=== PATIENT | male | born 1955 | race Caucasian/White ===

== ENCOUNTER → 2018-05-25 06:02 | Day surgery (SDC) | payer OTHER ==
--- NOTE | 2018-05-22 19:42 | HP ---
HISTORY AND PHYSICAL: DATE OF ADMISSION/SURGERY: 05/25/18 DATE OF OFFICE VISIT: 05/22/18 SURGEON: Shy Robledo MD * (DICTATED BY HANSA YEUNG) PROCEDURE: Right knee arthroscopy with partial meniscectomy, possible chondroplasty, possible synovectomy. CHIEF COMPLAINT: Right knee pain. HISTORY OF PRESENT ILLNESS: Mr. Cordova is a 62-year-old gentleman with continued complaints of right knee pain and MRI confirms a meniscus tear. He has now elected to proceed with surgery. PAST MEDICAL HISTORY: Colitis, high cholesterol, and asthma. PAST SURGICAL HISTORY: Varicocelectomy and left eye surgery. CURRENT MEDICATIONS: 1. Multivitamin. 2. Elocon topical. 3. CoQ10. 4. Balsalazide disodium 750 mg 3 tabs by mouth daily. ALLERGIES: SCOPOLAMINE. FAMILY HISTORY: Coronary artery disease, cancer, and RA. SOCIAL HISTORY: A 62-year-old, lives with his . Does not smoke or use drugs. Uses occasional alcohol. REVIEW OF SYSTEMS: A complete 14-point review of systems was reviewed with the patient. It was all negative or noncontributory. He denies history of DVT, PE , hepatitis, HIV, or anesthesia problems. PHYSICAL EXAMINATION GENERAL: He is well developed, well nourished, in no acute distress. VITAL SIGNS: He stands 5 feet 6 inches tall, weighs 169 pounds. His blood pressure is 114/60, heart rate is 67. HEENT: Normocephalic, atraumatic. NECK: Supple. No palpable lymph nodes. PULMONARY: The lungs are clear to auscultation bilaterally. CARDIO: Regular rate and rhythm. Strong S1, S2. ABDOMEN: Soft, nontender, and nondistended. NEUROLOGICAL: He is alert and oriented x3. MUSCULOSKELETAL: Right lower extremity: The skin is intact. There are no open wounds or abrasions. There is a mild joint effusion. He has some tenderness over the medial joint line. Range of motion is 0 to 130 degrees of flexion. Positive Apley's. 2+ dorsalis pedis pulse. His lower extremity muscle group strengths are intact at 5/5. ASSESSMENT AND PLAN: Mr. Cordova is a 62-year-old gentleman with continued right knee pain and MRI shows a medial meniscus tear. He has elected to proceed with a right knee arthroscopy with partial meniscectomy, possible chondroplasty, possible synovectomy. Surgery is scheduled for 05/25/[address] Robledo discussed the risks and benefits of the surgery at today's visit and all of his questions were answered. He will follow up with Dr. Robledo 2 weeks after the surgery. HANSA YEUNG [id number]/[facility] #: [id number] [facility] HOSPITALSandra
[~2018-05-25 06:02] MED LIST: Acetaminophen IV 1GM/100ML * 10 MG/ML VIAL IVPB PRN; Acetaminophen IV 1GM/100ML * 100 ML ONE; Buffered Lidocaine 1% SYRIN* 1 ML/SYRINGE INTRADERM ONE; Bupivacaine 0.5%* 50 ML VIAL ONE; Chloroprocaine 2%* 20 ML VIAL ONE; Dexamethasone IV* 4 MG/ML 1 ML (4 MG) IV SLOW PU ONE; Dexamethasone IV* 4 MG/ML 1 ML (4 MG) ONE; EPINEPHRINE 1 MG/ML 1 ML VIAL ONE; Famotidine IV* 10 MG/ML 2 ML (20 mg) IV ONE; Famotidine IV* 10 MG/ML 2 ML (20 mg) ONE; KETAMINE HCL* 50 MG/ML 10 ML VIAL ONE; Ketorolac INJ* 30 MG/ML 1 ML VIAL IV PRN; Lactated Ringers 1000 ML Bag* 1,000 ML IV SCH; Midazolam* 1 MG/ML 2 ML VIAL (2 MG) ONE; Naloxone* 0.4 MG/ML 1 ML VIAL IV PRN; Ondansetron INJ* 2 MG/ML VIAL IV PRN; Propofol* 10 MG/ML 20 ML BTL ONE; ceFAZolin 2 GM PREMIX in ORs 2 GM/50 ML BAG IVPB ONE; fentaNYL* 50 MCG/ML 2 ML VIAL (100 MCG VIAL) IV PRN; methylPREDNISolone ACETATE 80* 80 MG/ML 1 ML VIAL ONE
[2018-05-25 10:04] VITALS: BP 121/69
--- NOTE | 2018-05-25 20:49 | OP ---
DATE OF OPERATION: 05/25/18 - [facility] DATE OF : 51 SURGEON: Shy Robledo MD PURCHASING EXPEDITOR: HANSA Izquierdo. Ms. Gonzalez did help throughout the procedure with preparation of the leg, wound retraction, manipulation of the knee, and wound closure. ANESTHESIOLOGIST: Dr. Madison. ANESTHESIA: Spinal. PRE-OP DIAGNOSES: Right knee medial meniscal tear, moderate osteoarthritis. POST-OP DIAGNOSES: Right knee longitudinal tear of the medial meniscus, radial tear of the lateral meniscus, medial plica, anterior synovitis, moderate osteoarthritis. OPERATIVE PROCEDURE: Right knee arthroscopy with partial medial meniscectomy, partial lateral meniscectomy, and medial plica excision. BRIEF HISTORY/INDICATIONS: Mr. Cordova is a 62-year-old gentleman, who developed mechanical symptoms in the right knee and difficulty running. His radiographs showed some baseline arthritis. MRI was obtained and confirmed a meniscal tear medially. The patient tried conservative treatment, but continued to have pain and swelling. He elected to undergo right knee arthroscopy with partial meniscectomy, possible chondroplasty, possible synovectomy, possible plica excision. Informed consent was obtained from the patient. He understood the risks of surgery included, but were not limited to bleeding, infection, damage to nearby structures, continued pain, need for further surgery, retear of the meniscus, continued progression of pain from arthritis, stroke, heart attack, blood clot, and . He wished to proceed. INTRAOPERATIVE FINDINGS: Intraoperatively, the patient was noted to have a complex and linear tear of the posterior 50% of the medial meniscus in the white -red zone, he was also noted to have radial tear in the midportion and posterior horn of the lateral meniscus. He had significant anterior synovitis and a medial plica that impinged with range of motion along the patellofemoral joint. The patient was noted to have grade 2 and 3 Outerbridge cartilage changes in all three compartments of the knee. COMPLICATIONS: None. ESTIMATED BLOOD LOSS: Less than 25 cc. SPECIMENS: None. DESCRIPTION OF PROCEDURE: Mr. Cordova was identified in the preanesthesia unit. His right lower extremity was marked as the correct operative side. Informed consent was signed and placed in the chart. The patient was taken to the operating room and placed under anesthesia. His right lower extremity was prepped and draped in the usual sterile fashion. Preop time-out was made to correctly identify the patient, side, and site. Appropriate perioperative antibiotics were given within 1 hour of incision. A standard anterolateral portal incision was made with a #10 blade and carried down through the capsule. A trocar was introduced. As soon as the light and water sources were turned on, there was immediate visualization of the suprapatellar pouch. Suprapatellar pouch had no significant abnormality. The patellofemoral compartment had some grade 2 and 3 Outerbridge cartilage changes. Medial gutter showed a significant plica, which did impinge with range of motion along the patellofemoral compartment. There were no loose bodies in the medial plica. Medial compartment had some grade 2 and 3 Outerbridge cartilage changes along the medial femoral condyle. There was a significant postero-medial meniscal tear visible. ACL and PCL appeared to be intact. There was significant amount of the anterior synovitis. The knee was placed in a axiupd-vv-garl position. There was a visible radial tear of the midportion and lateral horn of the lateral meniscus. There were grade 2 and 3 Outerbridge cartilage changes in this compartment as well. Lateral gutter showed no loose body or plica. Under direct visualization, a medial portal incision was made with a #10 blade. Probe was introduced and a second tour of the knee joint was performed. There were no additional findings noted. Shaver and radiofrequency ablation wand were used to remove some anterior synovitis to improve visualization. Next, the shaver and radiofrequency ablation wand were used to perform a conservative excision of the medial plica until it no longer impinged with range of motion. Straight biter and shaver were used to perform partial medial meniscectomy in the white-red zone until a smooth border was obtained. Further probing of the posterior 50% of the medial meniscus showed no additional tears. Radiofrequency ablation wand was used to further smooth the edge of the meniscus. The knee was placed in a fvbshe-zd-uuww position. Shaver was used to excise the lateral meniscal radial tear until a smooth border of the meniscus was obtained in the white and white-red zone. The knee was copiously irrigated with sterile saline. All instruments were removed. Incisions were closed using 3-0 nylon suture. Intraarticular injection of 80 mg Depo-Medrol and 6 cc of 0.25% Marcaine was placed in the knee joint. Incisions were covered with Xeroform, 4x4s, and Webril. Guillermo wrap and cold pack were placed over this. The patient's anesthesia was reversed without difficulty. He was taken to the PACU in stable condition. Intended weightbearing will be weightbearing as tolerated. Intended DVT prophylaxis will be aspirin. He will follow up in 2 weeks' time for suture removal. [id number]/[facility] #: [id number] [facility]ALSandra
== END | disposition home or self-care (01) ==
LOC: OR 06:02
PROVIDERS: ATTEND Orthopaedic Surgery Adult Reconstructive Orthopaedic Surgery
DX: S83.241A Other tear of medial meniscus, current injury, right knee, initial encounter (principal); S83.281A Other tear of lateral meniscus, current injury, right knee, initial encounter; M25.561 Pain in right knee; M25.461 Effusion, right knee; M17.0 Bilateral primary osteoarthritis of knee; E78.00 Pure hypercholesterolemia, unspecified; J45.909 Unspecified asthma, uncomplicated; Z88.8 Allergy status to other drugs, medicaments and biological substances
CPT/HCPCS: J0690; J1040; J1100; J2250; J2400; J2704

== ENCOUNTER 2019-04-23 10:47 | Emergency (ER) | payer MEDICARE ==
--- OUTSIDE RECORDS SUMMARY | 2019-04-23 10:56 | XMS REPORT | Continuity of Care Document ---
:1955 External Reference #:[id number] Author Name Jayson Fermin MD (transmitted by agent of provider Rosalina Palmer) Address [address] [place] [address] Care Team Providers Name Role Phone Jayson Fermin MD - Gastroenterology Care Team Information Coping Machine Operator [phone] Toro Roger III, MD - Internal Care Team Information Coping Machine Operator [phone] Medicine Kobe Robertson MD - Otolaryngology Care Team Information Coping Machine Operator Problems Active Problems Provider Date Crohn's disease Ernie Sierra M.D.,FACP Onset: 03/13/2007 Note: vs UC - ( indeterminant per [facility]) - UC per first program therapist in [place] - bloody diarrhea Hyperlipidemia Ernie Sierra M.D.,FACP Onset: 03/13/2007 Note: in late was on Lipitor and had muscle soreness Insomnia Ernie Sierra M.D.,FACP Onset: 03/13/2007 Chronic rhinitis Toro Roger M.D. Onset: 04/24/2012 Note: allergy shots every 2 weeks in 2018 (brief trial of monthly winter shots in 2015 - 2016); Microscopic hematuria Ernie Sierra M.D.,FACP Onset: 11/18/2014 Note: had cystoscopy in distant past Localized, primary osteoarthritis Shy Robledo M.D. Onset: 01/25/2018 Current tear of medial cartilage AND/OR Shy Robledo M.D. Onset: 01/25/2018 meniscus of knee Iron deficiency anemia Jayson Fermin MD Onset: 05/23/2012 Note: Hg 12.5 MCV 78 at Dx 05/23/12 then 12/26/14 Hg 16.0 Hct 48 MCV 91 Social History Type Date Description Comments Sex Unknown Tobacco Use Start: Unknown Never Smoked Cigarettes ETOH Use consumes 3-4 glasses per week Recreational Drug Use Denies Drug Use Tobacco Use Start: Unknown Patient has never smoked Smoking Status Reviewed: 04/06/19 Patient has never smoked Exercise Type/Frequency Exercises regularly runs every other day. Still working out on the elliptical Allergies, Adverse Reactions, Alerts Active Allergies Reaction Severity Comments Date Scopolamine hallucinations 03/13/2007 Demerol Nausea N/V sx 05/09/2018 Morphine and Related vomiting 08/18/2018 Medications Active Medications SIG Qnty Indications Ordering Date Provider Cortenema 1 60 mL bottle 840units Jayson Farley 03/19/2019 nightly for 14 MD Zander 100mg/60ML Enema days - dispense 14 individual bottles Prednisone take 5 a day and 60tabs Jayson Farley 02/26/2019 10mg taper as directed MD Zander Tablets Multi-Vitamins/Iron 1 po qd 100tabs Ernie Aj 05/30/2012 Lewis Sierra,FACP Tablets Co Q10 1 po qd - not 90caps Unknown 100mg everyday Capsules Balsalazide 3 tabs by mouth 270caps Jayson Farley Disodium twice daily MD Zander 750mg Capsules History Medications Cortenema one each night 420ml Jayson Farley 03/19/2019 - 100mg/60ML MD Zander 03/19/2019 Enema Hydrocortisone Acetate insert 1 12units Jayson Farley 03/07/2019 - suppository into MD Zander 03/19/2019 25mg Suppository rectum once per night as directed. Medications Administered in Office Medication SIG Qnty Indications Ordering Provider Date Synvisc Or Synvisc-One Injection 1 Shy Robledo M.D. 03/29/2018 MG Injection Synvisc Or Synvisc-One Injection 1 Shy Robledo M.D. 03/24/2018 MG Injection Synvisc Or Synvisc-One Injection 1 Shy Robledo M.D. 03/17/2018 MG Injection Depomedrol 40MG Shy Rboledo M.D. 11/18/2017 Injection Immunizations CPT Code Status Date Vaccine Reaction Lot # [id number] Given 01/29/2019 Influenza Virus Vaccine, No immediate reaction [id number] Quadrivalent ([id number]), Derived From Cell 07428 Given 06/21/2018 Tdap - [id number] Tetanus/Diptheria/Acellular Pertussis 76938 Given 04/27/2018 Influenza Virus Vaccine, [id number] Quadrivalent, Split, Preservative Free 09378 Given 02/06/2016 Influ Virus Vaccine, [id number] Quadrivalent, Split Virus, [place] [address] Given 11/18/2014 Pneumococcal Conjugate no reaction, no [id number] Vaccine 13 Valent For complaints Intramuscular Use 80492 Given 11/16/2013 Zoster (Zostavax) [id number] Given 04/24/2012 Fluvirin Im 3Yrs And Older [id number] Vital Signs Date Vital Result Comment 04/06/2019 10:19am Height 66 inches 5'6" Weight 157.00 lb Heart Rate 91 /min BP Systolic Sitting 124 mmHg BP Diastolic Sitting 78 mmHg Body Temperature 97.8 F O2 % BldC Oximetry 100 % BMI (Body Mass Index) 25.3 kg/m2 03/19/2019 1:56pm Height 66 inches 5'6" Weight 157.00 lb Heart Rate 83 /min BP Systolic Sitting 112 mmHg BP Diastolic Sitting 62 mmHg Respiratory Rate 18 /min O2 % BldC Oximetry 98 % BMI (Body Mass Index) 25.3 kg/m2 Results Test Acquired Date Facility Test Result H/L Range Note CBC No Diff 02/26/2019 [facility] White Blood 15.1 10^3/uL High 3.5-10.[address] [place] [address] [phone] Red Blood Count 5.03 10^6/uL Normal 4.18-5.48 Hemoglobin 15.1 g/dL Normal 14.0-18.0 Hematocrit 45 % Normal 42-52 Mean Corpuscular Volume 89 fL Normal 80-94 Mean Corpuscular Hemoglobin 30 pg Normal 27-31 Mean Corpuscular HGB Conc 34 g/dL Normal 31-36 Red Cell Distribution Width 13 % Normal 10-15 Platelet Count 306 10^3/uL Normal 150-450 Mean Platelet Volume 7.4 fL Normal 7.4-10.4 Comp Metabolic 02/26/2019 [facility] Sodium 139 mmol/L Normal 135-145 [address] [place] [address] [phone] Potassium 4.2 mmol/L Normal 3.5-5.0 Chloride 101 mmol/L Normal 101-111 Co2 Carbon Dioxide 31 mmol/L Normal 22-32 Anion Gap 7 mmol/L Normal 2-11 Glucose 85 mg/dL Normal 70-100 Blood Urea Nitrogen 15 mg/dL Normal 6-24 Creatinine 0.89 mg/dL Normal 0.67-1.17 BUN/Creatinine Ratio 16.9 Normal 8-20 Calcium 9.7 mg/dL Normal 8.6-10.3 Total Protein 6.8 g/dL Normal 6.4-8.9 Albumin 4.2 g/dL Normal 3.2-5.2 Globulin 2.6 g/dL Normal 2-4 Albumin/Globulin Ratio 1.6 Normal 1-3 Total Bilirubin 1.00 mg/dL Normal 0.2-1.0 Alkaline Phosphatase 80 U/L Normal 34-104 Alt 14 U/L Normal 7-52 Ast 20 U/L Normal 13-39 Egfr Non- 85.8 >60 Egfr 103.8 >60 1 Laboratory test 02/26/2019 [facility] C Reactive 2.72 mg/L Normal <8.[address] [place] [address] [phone] Thiopurine Metabolites <pending> Thiopurine 02/26/2019 [facility] Interpretation See Comment 2 Methyltransferase [address] [place] [address] [phone] 6-Methylmercaptopurine 2.86 nmol/mL/h Abnormal 3.00-6.66 6Methylmercaptopurine Riboside 4.95 nmol/mL/h Abnormal 5.04-9.57 6-Methylthioguanine riboside 4.18 nmol/mL/h 2.70-5.84 Reviewed By See Comment 3 Laboratory test 10/18/2018 [facility] Surgical SEE RESULT 4 , [address] [place] [address] [phone] 1 Because ethnic data is not always readily available, this report includes an eGFR for both -Americans and non- Americans. The National Kidney Disease Education Program (NKDEP) does not endorse the use of the MDRD equation for patients that are not between the ages of 18 and 70, are , have extremes of body size, muscle mass, or nutritional status, or are non- or non-. According to the National Kidney Foundation, irrespective of diagnosis, the stage of the disease is based on the level of kidney function: Stage Description GFR(mL/min/1.73 m(2)) 1 Kidney damage with normal or decreased GFR 90 2 Kidney damage with mild decrease in GFR 60-89 3 Moderate decrease in GFR 30-59 4 Severe decrease in GFR 15-29 5 Kidney failure <15 (or dialysis) 2 *Heterozygote* In this whole blood sample, the profile of activity of thiopurine methyltransferase (TPMT) using three different substrates showed low activity with at least one substrate. This profile is indicative of carrier status for TPMT deficiency with an underlying risk for toxicity to thiopurine drugs (for example, 6-mercaptopurine, 6-thioguanine, and azathioprine). Patients with reduced TPMT activity may still be treated with thiopurine drugs with fewer adverse effects by reducing the initial dose. ADDITIONAL INFORMATION Liquid Chromatography-Tandem Mass Spectrometry (LC-MS/MS) This test was developed and its performance characteristics determined by [facility] in a manner consistent with CLIA requirements. This test has not been cleared or approved by the U.S. Food and Drug Administration. 3 RESULT: Malcolm Mckeon M.D. Test Performed by: [address] [address] Axle Polisher: Denzel Krishna M.D. Ph.D.; CLIA# [id number] 4 [id number] SEE RESULT BELOW Name: LION MANLEY : [address]: Jayson Fermin MD Acct: [id number] Unit: [id number] AGE: 63 Location: ENDOC Re10/18/18 SEX: M Status: DEP REF SPEC: [id number] TIFFANIE: 10/18/18- SUBM DR: Jayson Fermin MD REQ: [id number] RECD: 10/18/180 STATUS: PHILIP ACOSTA DR: Toro Roger III, MD _ ORDERED: LEVEL 4/7 COMMENTS: [id number] FINAL DIAGNOSIS 1. Colon, right, biopsies: -- Large intestinal mucosa with mild architectural disorder compatible with repair. -- No active colitis or dysplasia identified. 2. Colon, transverse, biopsy: -- Large intestinal mucosa with no significant pathologic abnormality. -- No active colitis or dysplasia identified. 3. Colon, transverse, biopsy: -- Partially denuded large intestinal mucosa with no significant pathologic abnormality. -- No active colitis or dysplasia identified. 4. Colon, descending, biopsy: -- Large intestinal mucosa with no significant pathologic abnormality. -- No active colitis or dysplasia identified. 5. Colon, sigmoid, biopsy: -- Large intestinal mucosa with no significant pathologic abnormality. -- No active colitis or dysplasia identified. 6. Colon, rectal erythema, biopsy: -- Large intestinal mucosa with mild architectural disorder compatible with repair and mild lamina propria nonspecific hyperemia. -- No active colitis or dysplasia identified. 7. Colon, rectum, biopsy: -- Superficial squamous mucosa with no significant pathologic abnormality. CONTINUED ON NEXT PAGE DEPARTMENT OF PATHOLOGY, [address] [place] [address] Cole Donnelly M.D. Director [facility] # [id number] RUN DATE: 10/19/18 [facility] LAB LIVE PAGE 2 Patient: LION MANLEY [id number] (Continued) CLINICAL HISTORY (Continued) CLINICAL HISTORY Ulcerative colitits 2-3 days no blood; screening/surveillance for malignancy in asymptomatic patient POST-OPERATIVE DIAGNOSIS Colonoscopy to cecum with ease: random biopsy (6) sites; approximately 5 to 10% of mucosa inflamed, 5 to 30 cm approximately five smooth 2-6 cm pseudopolyps, atrophic mucosa in rectum, polyp mid transverse, cold snare, biopsies x2 and tattoo; conclusion/ plan: colon polyps, ulcerative colitis random biopsy GROSS DESCRIPTION 1. The specimen is received in formalin labeled, Biopsy Right Colon, and consists of two pierce irregular soft tissue fragments measuring 0.3 x 0.2 x 0.1 cm and 0.3 x 0.3 x 0.1 cm which are submitted entirely in one cassette. 2. The specimen is received in formalin labeled, Biopsy Transverse Colon, and consists of two pierce irregular soft tissue fragments measuring 0.3 x 0.2 x 0.1 cm and 0.8 by up to 0.2 x 0.1 cm which are submitted entirely in one cassette. 3. The specimen is received in formalin labeled, Transverse Colon Polyp, and consists of two pierce-white to pink irregular soft tissue fragments measuring 0.5 by up to 0.2 x 0.1 cm and 0.7 by up to 0.3 x 0.1 cm which are submitted entirely in one cassette. 4. The specimen is received in formalin labeled, Biopsy Descending Colon, and consists of a 0.4 x 0.3 x 0.1 cm aggregate of pierce irregular soft tissue fragments which is submitted entirely in one cassette. 5. The specimen is received in formalin labeled, Biopsy Sigmoid Colon, and consists of two pierce-white irregular soft tissue fragments averaging 0.4 x 0.2 x 0.1 cm which are submitted entirely in one cassette. 6. The specimen is received in formalin labeled, Biopsy Rectal Erythema, and consists of two pierce-pink irregular soft tissue fragments measuring 0.3 x 0.2 x 0.2 cm and 0.4 x 0.3 x 0.1 cm which are submitted entirely in one cassette. 7. The specimen is received in formalin labeled, Biopsy Rectum-Atrophic Mucosa, and CONTINUED ON NEXT PAGE DEPARTMENT OF PATHOLOGY, [address] [place] [address] Cole Donnelly M.D. Director [facility] # [id number] RUN DATE: 10/19/18 [facility] LAB LIVE PAGE 3 Patient: LION MANLEY [id number] (Continued) GROSS DESCRIPTION (Continued) consists of two translucent pierce-white irregular soft tissue fragments averaging 0.3 by up to 0.3 x 0.1 cm which are submitted entirely in one cassette. Signed by and Reported on: Cole Donnelly MD 02/27 1024 END OF REPORT DEPARTMENT OF PATHOLOGY, [address] [place] [address] Cole Donnelly M.D. Director [facility] # [id number] Procedures Date Code Description Status 10/18/2018 65373 Colonoscopy Flexible Remove Tumor/Polyp/Lesion Snare Completed Technique 10/18/2018 87837 Colonoscopy,W/Directed Submucosal Injections, Any Completed Substance 10/18/2018 [id number] Colonoscopy Completed 02/16/2017 [id number] Colonoscopy Completed 12/10/2015 [id number] Colonoscopy Completed 05/20/2014 [id number] Colonoscopy Completed 04/25/2013 [id number] Colonoscopy Completed 03/05/2008 [id number] Colonoscopy Completed Medical Devices Description No Information Available Encounters Type Date Location Provider Dx Diagnosis Office Visit 03/19/2019 [facility] Gastroenterology Jayson Farley K51.90 Ulcerative colitis, 1:45p MD Zander unspecified, without complications Z79.899 Other alf (current) drug therapy Office 02/26/2019 [facility] Gastroenterology Jayson Farley K51.90 Ulcerative Visit 12:30p MD Zander colitis, unspecified, without complications Z79.899 Other alf (current) drug therapy Office Visit 01/29/2019 1:40p [facility] Internal Harmanmarcella Rubio, Z01.818 Encounter for other Medicine - [facility] HELPER preprocedural Ccmob examination H26.9 Unspecified cataract K50.90 Crohn's disease, unspecified, without complications Z23 Encounter for immunization Assessments Date Code Description Provider 04/06/2019 K51.90 Ulcerative colitis, unspecified, without Jayson Fermin MD complications 04/06/2019 Z79.899 Other alf (current) drug therapy Jayson Fermin MD 03/19/2019 K51.90 Ulcerative colitis, unspecified, without Jayson Fermin MD complications 03/19/2019 Z79.899 Other alf (current) drug therapy Jayson Fermin MD 02/26/2019 K51.90 Ulcerative colitis, unspecified, without Jayson Fermin MD complications 02/26/2019 Z79.899 Other alf (current) drug therapy Jayson Fermin MD 01/29/2019 Z01.818 Encounter for other preprocedural examination Harman Rubio NP 01/29/2019 H26.9 Unspecified cataract Harman Rubio NP 01/29/2019 K50.90 Crohn's disease, unspecified, without Harman Rubio NP complications 01/29/2019 Z23 Encounter for immunization Harman Rubio NP 10/18/2018 K63.5 Polyp of colon Jayson Fermin MD 10/18/2018 K51.90 Ulcerative colitis, unspecified, without Jayson Fermin MD complications 10/18/2018 Z86.010 Personal history of colonic polyps Jayson Fermin MD Plan of Treatment Future Appointment(s):05/17/2019 10:15 am - Jayson Fermin MD at [facility] Jpexgzhiidxagtfc81/27/2019 - Jayson Fermin MDK51.90 Ulcerative colitis, unspecified, without complicationsFollow up:Prednisone 50 to 04/08 40 to 04/15 30 to 04/22 20to 04/29 10 to 05/06 then 5 until f/u appt Cortenemas go to every other as of 04/15/19 f/u before May 16Z79.899 Other terminal operator (current) drug therapyFollow up:Prednisone 50 to 04/08 40 to 04/15 30 to 04/22 20to 04/29 09 to 05/06 then 5 until f/u appt Cortenemas go to every other as of 04/15/19 f/u before May 16 Functional Status Description No Information Available Mental Status Description No Information Available Referrals Description No Information Available
--- OUTSIDE RECORDS SUMMARY | 2019-04-23 10:56 | XMS REPORT | Continuity of Care Document ---
:1955 External Reference #:[id number] Author Name Jayson Fermin MD (transmitted by agent of provider Stephanie Morgan) Address [address] [place] [address] Care Team Providers Name Role Phone Jayson Fermin MD - Gastroenterology Care Team Information Forest Logistics Manager Toro Roger III, MD - Internal Care Team Information Forest Logistics Manager Medicine Kobe Robertson MD - Otolaryngology Care Team Information Forest Logistics Manager Problems Active Problems Provider Date Crohn's disease Ernie Sierra M.D.,FACP Onset: 03/13/2007 Note: vs UC - ( indeterminant per [facility]) - UC per first shop laborer in [place] - bloody diarrhea Hyperlipidemia Ernie Sierra M.D.,FACP [...] Patient has never smoked Smoking Status Reviewed: 03/19/19 Patient has never smoked Exercise Type/Frequency Exercises [...] M.D. 03/17/2018 MG Injection Depomedrol 40MG Shy Robledo M.D. 11/18/2017 Injection Immunizations CPT Code Status Date Vaccine Reaction Lot # 14836 Given 01/29/2019 Influenza Virus Vaccine, No immediate reaction [id number] Quadrivalent (Cciiv4), Derived From Cell 38811 Given 06/21/2018 Tdap - [id number] Tetanus/Diptheria/Acellular Pertussis 69006 Given 04/27/2018 Influenza Virus Vaccine, 74BL5 Quadrivalent, Split, Preservative Free 16846 Given 02/06/2016 Influ Virus Vaccine, [id number] Quadrivalent, Split Virus, [place] [address] Given 11/18/2014 Pneumococcal Conjugate no reaction, no [id number] Vaccine 13 Valent For complaints Intramuscular Use 85858 Given 11/16/2013 Zoster (Zostavax) Q2037 Given 04/24/2012 Fluvirin Im 3Yrs And Older [id number] Vital Signs Date Vital Result Comment 03/19/2019 1:56pm Height 66 inches 5'6" Weight 157.00 lb Heart Rate 83 /min BP Systolic Sitting 112 mmHg BP Diastolic Sitting 62 mmHg Respiratory Rate 18 /min O2 % BldC Oximetry 98 % BMI (Body Mass Index) 25.3 kg/m2 02/26/2019 12:54pm Height 66 inches 5'6" Weight 161.00 lb Heart Rate 71 /min BP Systolic 99 mmHg BP Diastolic 55 mmHg O2 % BldC Oximetry 97 % BMI (Body Mass Index) 26.0 kg/m2 Results Test Acquired Date Facility Test Result H/L Range Note CBC No Diff 02/26/2019 [facility] White Blood 15.1 10^3/uL High 3.5-10.[address] [place] [address] [phone] Red Blood Count 5.03 10^6/uL Normal 4.18-5.48 Hemoglobin 15.1 g/dL Normal 14.0-18.0 Hematocrit 45 % Normal 42-52 Mean Corpuscular Volume 89 fL Normal 80-94 Mean Corpuscular Hemoglobin 30 pg Normal 27-31 Mean Corpuscular HGB Conc 34 g/dL Normal 31-36 Red Cell Distribution Width 13 % Normal 10-15 Platelet Count 306 10^3/uL Normal 150-450 Mean Platelet Volume 7.4 fL Normal 7.4-10.4 Comp Metabolic 02/26/2019 [facility] Sodium 139 mmol/L Normal 135-145 Panel [address] [place] [address] [phone] Potassium 4.2 mmol/L Normal 3.5-5.0 Chloride 101 [...] Egfr 103.8 >60 1 Laboratory test 02/26/2019 [facility] C Reactive 2.72 mg/L Normal <8.[address] [facility] [place] [address] [phone] Thiopurine Metabolites <pending> Thiopurine 02/26/2019 [facility] Interpretation See Comment 2 Methyltransferase [address] [place] [address] [phone] 6-Methylmercaptopurine 2.86 nmol/mL/h Abnormal 3.00-6.66 6Methylmercaptopurine Riboside 4.95 nmol/mL/h Abnormal 5.04-9.57 6-Methylthioguanine riboside 4.18 nmol/mL/h 2.70-5.84 Reviewed By See Comment 3 Laboratory test 10/18/2018 [facility] Surgical SEE RESULT 4 , [address] [facility] [place] [place] [address] [phone] 1 Because ethnic data is not always [...] its performance characteristics determined by [facility] in a manner consistent with CLIA requirements. This test has not been cleared or approved by the U.S. Food and Drug Administration. 3 RESULT: Malcolm Mckeon M.D. Test Performed by: [address] [address] Health Practice Manager: Denzel Krishna M.D. Ph.D.; CLIA# [id number] 4 [id number] 5 SEE RESULT BELOW Name: LION MANLEY Lilliam : [address]: Jayson Fermin MD Acct: [id number] Unit: [id number] AGE: 63 Location: ENDOC Re10/18/18 SEX: M Status: DEP REF SPEC: [id number] TIFFANIE: 10/18/18- SUBM DR: Jayson Fermin MD REQ: [id number] RECD: 10/18/18-1210 STATUS: PHILIP ACOSTA DR: Toro Roger III, MD _ ORDERED: LEVEL 4/7 COMMENTS: [id number] FINAL DIAGNOSIS 1. Colon, right, biopsies: -- [...] CONTINUED ON NEXT PAGE DEPARTMENT OF PATHOLOGY, [address] [place] [address] Cole Donnelly M.D. Director [facility] # [id number] RUN DATE: 10/19/18 [facility] LAB LIVE PAGE 2 Patient: LION MANLEY [id number] (Continued) CLINICAL HISTORY (Continued) CLINICAL HISTORY Ulcerative [...] Biopsy Transverse Colon, and consists of two pirece irregular soft tissue fragments measuring 0.3 x [...] CONTINUED ON NEXT PAGE DEPARTMENT OF PATHOLOGY, [address] [place] [address] Cole Donnelly M.D. Director [facility] # [id number] RUN DATE: 10/19/18 [facility] LAB LIVE PAGE 3 Patient: LION MANLEY [id number] (Continued) GROSS DESCRIPTION (Continued) consists of two translucent pierce-white irregular soft tissue fragments averaging 0.3 by up to 0.3 x 0.1 cm which are submitted entirely in one cassette. Signed by and Reported on: Cole Donnelly MD 02/27 1024 END OF REPORT DEPARTMENT OF PATHOLOGY, [address] [place] [address] Cole Donnelly M.D. Director [facility] # [id number] Procedures Date Code Description Status 10/18/2018 20284 Colonoscopy Flexible Remove Tumor/Polyp/Lesion Snare Completed Technique 10/18/2018 32382 Colonoscopy,W/Directed Submucosal Injections, Any Completed Substance 10/18/2018 01572905 Colonoscopy Completed 02/16/2017 90046475 Colonoscopy Completed 12/10/2015 16501656 Colonoscopy Completed 05/20/2014 33098361 Colonoscopy Completed 04/25/2013 25704818 Colonoscopy Completed 03/05/2008 06305046 Colonoscopy Completed Medical Devices Description No Information Available Encounters Type Date Location Provider Dx Diagnosis Office Visit 02/26/2019 [facility] Gastroenterology Jayson Farley K51.90 Ulcerative colitis, 12:30p MD Zander unspecified, without complications Z79.899 Other fpc (current) drug therapy Office Visit 01/29/2019 1:40p [facility] Internal Harmanmarcella Rubio, Z01.818 Encounter for other Medicine - TRANSPORTATION SUPERVISOR preprocedural Ccmob examination H26.9 Unspecified cataract K50.90 Crohn's disease, unspecified, without complications Z23 Encounter for immunization Assessments Date Code Description Provider 03/19/2019 K51.90 Ulcerative colitis, unspecified, without Jayson Fermin MD complications 03/19/2019 Z79.899 Other fpc (current) drug therapy Jayson Fermin MD 02/26/2019 K51.90 Ulcerative colitis, unspecified, without Jayson Fermin MD complications 02/26/2019 Z79.899 Other fpc (current) drug therapy Jayson Fermin MD 01/29/2019 Z01.818 Encounter for other preprocedural examination Harman Rubio NP 01/29/2019 H26.9 Unspecified cataract Harman Rubio, ERIN 01/29/2019 K50.90 Crohn's disease, unspecified, without Harman Rubio NP complications 01/29/2019 Z23 Encounter for immunization Harman Rubio NP 10/18/2018 K63.5 Polyp of colon Jayson Fermin MD 10/18/2018 K51.90 Ulcerative colitis, unspecified, without Jayson Fermin MD complications 10/18/2018 Z86.010 Personal history of colonic polyps Jayson Fermin MD Plan of Treatment Future Appointment(s):04/06/2019 10:15 am - Jayson Fermin MD at [facility] Ltrtihilkdnymkym41/16/2020 11:00 am - Jayson Fermin MD at [facility] Qjiedxgybqyikjas68/09/2019 - Jayson Fermin MDK51.90 Ulcerative colitis, unspecified, without complicationsFollow up:Apr 05Z79.899 Other fpc (current) drug therapyFollow up:Apr 05 Functional Status Description No Information Available Mental Status Description No Information Available Referrals Description No Information Available
--- OUTSIDE RECORDS SUMMARY | 2019-04-23 10:57 | XMS REPORT | Continuity of Care Document ---
:1955 External Reference #:[id number] Author Name Jayson Fermin MD (transmitted by agent of provider Stephanie Morgan) Address [address] [place] [address] Care Team Providers Name Role Phone Jayson Fermin MD - Gastroenterology Care Team Information Director Of [employer] [phone] Toro Roger III, MD - Internal Care Team Information Director Of [employer] Medicine Kobe Robertson MD - Otolaryngology Care Team Information Director Of [employer] Problems Active Problems Provider Date Crohn's disease Ernie Sierra M.D.,FACP Onset: 03/13/2007 Note: vs UC - ( indeterminant per [facility]) - UC per first duco polisher in [place] - bloody diarrhea Hyperlipidemia Ernie Sierra M.D.,FACP [...] Code Status Date Vaccine Reaction Lot # 71449 Given 01/29/2019 Influenza Virus Vaccine, No immediate reaction [id number] Quadrivalent (Cciiv4), Derived From Cell 01481 Given 06/21/2018 Tdap - [id number] Tetanus/Diptheria/Acellular Pertussis 36053 Given 04/27/2018 Influenza Virus Vaccine, 74BL5 Quadrivalent, Split, Preservative Free 99941 Given 02/06/2016 Influ Virus Vaccine, [id number] Quadrivalent, Split Virus, [place] [address] Given 11/18/2014 Pneumococcal Conjugate no reaction, no [id number] Vaccine 13 Valent For complaints Intramuscular Use 32167 Given 11/16/2013 Zoster (Zostavax) Q2037 Given 04/24/2012 Fluvirin Im 3Yrs And Older [id number] Vital Signs Date Vital Result Comment 03/19/2019 [...] H/L Range Note CBC No Diff 02/26/2019 [facility] White Blood 15.1 10^3/uL High 3.5-10.[address] [place] [address] [phone] Red Blood Count 5.03 10^6/uL Normal 4.18-5.48 Hemoglobin 15.1 g/dL Normal 14.0-18.0 Hematocrit 45 % Normal 42-52 Mean Corpuscular Volume 89 fL Normal 80-94 Mean Corpuscular Hemoglobin 30 pg Normal 27-31 Mean Corpuscular HGB Conc 34 g/dL Normal 31-36 Red Cell Distribution Width 13 % Normal 10-15 Platelet Count 306 10^3/uL Normal 150-450 Mean Platelet Volume 7.4 fL Normal 7.4-10.4 Comp Metabolic 02/26/2019 [facility] Sodium 139 mmol/L Normal 135-145 Panel [address] [place] [address] [phone] Potassium 4.2 mmol/L Normal 3.5-5.0 Chloride 101 [...] Egfr 103.8 >60 1 Laboratory test 02/26/2019 [facility] C Reactive 2.72 mg/L Normal <8.01 finding 101 [facility] [place] [address] [phone] Thiopurine Metabolites <pending> Thiopurine 02/26/2019 [facility] Interpretation See Comment 2 Methyltransferase [address] [place] [address] [phone] 6-Methylmercaptopurine 2.86 nmol/mL/h Abnormal 3.00-6.66 6Methylmercaptopurine Riboside 4.95 nmol/mL/h Abnormal 5.04-9.57 6-Methylthioguanine riboside 4.18 nmol/mL/h 2.70-5.84 Reviewed By See Comment 3 Laboratory test 10/18/2018 [facility] Surgical SEE RESULT 4 , 5 finding [address] [facility] [place] [address] [phone] 1 Because ethnic data is not always [...] its performance characteristics determined by [facility] in a manner consistent with CLIA requirements. This test has not been cleared or approved by the U.S. Food and Drug Administration. 3 RESULT: Malcolm Mckeon M.D. Test Performed by: [address] [address] Piano Maker: Denzel Krishna M.D. Ph.D.; CLIA# [id number] 4 [id number] 5 SEE RESULT BELOW Name: LION MANLEY Lilliam : [address]: Jayson Fermin MD Acct: [id number] Unit: [id number] AGE: 63 Location: ENDOC Re10/18/18 SEX: M Status: DEP REF SPEC: [id number] TIFFANIE: 10/18/18- SUBM DR: Jayson Fermin MD REQ: [id number] RECD: 10/18/18-1210 STATUS: PHILIP ACOSTA DR: Toro Roger III, MD _ ORDERED: LEVEL 4/7 COMMENTS: [id number] FINAL DIAGNOSIS 1. Colon, right, biopsies: -- [...] CONTINUED ON NEXT PAGE DEPARTMENT OF PATHOLOGY, [address] [place] [address] Cole Donnelly M.D. Director [facility] # [id number] RUN DATE: 10/19/18 [facility] LAB LIVE PAGE 2 Patient: LION MANLEY [id number] (Continued) CLINICAL HISTORY (Continued) CLINICAL HISTORY Ulcerative [...] CONTINUED ON NEXT PAGE DEPARTMENT OF PATHOLOGY, [address] [place] [address] Cole Donnelly M.D. Director [facility] # [id number] RUN DATE: 10/19/18 [facility] LAB LIVE PAGE 3 Patient: LION MANLEY [id number] (Continued) GROSS DESCRIPTION (Continued) consists of two translucent pierce-white irregular soft tissue fragments averaging 0.3 by up to 0.3 x 0.1 cm which are submitted entirely in one cassette. Signed by and Reported on: Cole Donnelly MD 02/27 1024 END OF REPORT DEPARTMENT OF PATHOLOGY, [address] [place] [address] Cole Donnelly M.D. Director [facility] # [id number] Procedures Date Code Description Status 10/18/2018 63418 Colonoscopy Flexible Remove Tumor/Polyp/Lesion Snare Completed Technique 10/18/2018 21504 Colonoscopy,W/Directed Submucosal Injections, Any Completed Substance 10/18/2018 46136686 Colonoscopy Completed 02/16/2017 18245125 Colonoscopy Completed 12/10/2015 09132074 Colonoscopy Completed 05/20/2014 96133472 Colonoscopy Completed 04/25/2013 95870603 Colonoscopy Completed 03/05/2008 00877914 Colonoscopy Completed Medical Devices Description No Information Available Encounters Type Date Location Provider Dx Diagnosis Office Visit 02/26/2019 [facility] Gastroenterology Jayson Farley K51.90 Ulcerative colitis, 12:30p MD Zander unspecified, without complications Z79.899 Other fpc (current) drug therapy Office Visit 01/29/2019 1:40p [facility] Internal Harmanmarcella Rubio, Z01.818 Encounter for other Medicine - CHEMIST ORGANIC preprocedural Ccmob examination H26.9 Unspecified cataract K50.90 [...] 10:15 am - Jayson Fermin MD at [facility] Hquuouwjvndfveet71/16/2020 11:00 am - Jayson Fermin MD at [facility] Dgnliyfaxymaycei53/09/2019 - Jayson Fermin MDK51.90 Ulcerative colitis, unspecified, without complicationsFollow up:Apr 05Z79.899 Other fpc (current) drug therapyFollow up:Apr 05 Functional Status Description No Information Available Mental Status Description No Information Available Referrals Description No Information Available
--- OUTSIDE RECORDS SUMMARY | 2019-04-23 10:57 | XMS REPORT | Continuity of Care Document ---
:1955 External Reference #:[id number] Author Name Jayson Fermin MD (transmitted by agent of provider Madyson Clifton) Address [address] [place] [address] Care Team Providers Name Role Phone Jayson Fermin MD - Gastroenterology Care Team Information Web Services Professional Toro Roger III, MD - Internal Care Team Information Web Services Professional Medicine Kobe Robertson MD - Otolaryngology Care Team Information Web Services Professional [phone] Problems Active Problems Provider Date Crohn's disease Ernie Sierra M.D.,FACP Onset: 03/13/2007 Note: vs UC - ( indeterminant per [facility]) - UC per first plant senior manager in [place] - bloody diarrhea Hyperlipidemia Ernie Sierra M.D.,FACP [...] Patient has never smoked Smoking Status Reviewed: 02/26/19 Patient has never smoked Exercise Type/Frequency Exercises regularly runs every other day. Still working out on the elliptical Allergies, Adverse Reactions, Alerts Active Allergies Reaction Severity Comments Date Scopolamine hallucinations 03/13/2007 Demerol Nausea N/V sx 05/09/2018 Morphine and Related vomiting 08/18/2018 Medications Active Medications SIG Qnty Indications Ordering Provider Date Prednisone take 4 a day and 60tabs Jayson Fermin, 02/26/2019 10mg taper as directed Tablets Multi-Vitamins/Iron 1 po qd 100tabs Ernie Aj 05/30/2012 Lewis Sierra,FACP Tablets Co Q10 1 po qd - not 90caps Unknown 100mg Capsules everyday Balsalazide Disodium 3 tabs by mouth 270caps Jayson Fermin, daily 750mg Capsules Medications Administered in Office Medication SIG Qnty Indications Ordering Provider Date Synvisc Or Synvisc-One Injection 1 Shy Robledo M.D. 03/29/2018 MG Injection Synvisc Or Synvisc-One Injection 1 Shy Robledo M.D. 03/24/2018 MG Injection Synvisc Or Synvisc-One Injection 1 Shy Robledo M.D. 03/17/2018 MG Injection Depomedrol 40MG Shy Robledo M.D. 11/18/2017 Injection Immunizations CPT Code Status Date Vaccine Reaction Lot # 99112 Given 01/29/2019 Influenza Virus Vaccine, No immediate reaction 602185 Quadrivalent (Cciiv4), Derived From Cell 77723 Given 06/21/2018 Tdap - [id number] Tetanus/Diptheria/Acellular Pertussis 87881 Given 04/27/2018 Influenza Virus Vaccine, 74BL5 Quadrivalent, Split, Preservative Free 97558 Given 02/06/2016 Influ Virus Vaccine, [id number] Quadrivalent, Split Virus, [place] [address] Given 11/18/2014 Pneumococcal Conjugate no reaction, no [id number] Vaccine 13 Valent For complaints Intramuscular Use 82289 Given 11/16/2013 Zoster (Zostavax) Q2037 Given 04/24/2012 Fluvirin Im 3Yrs And Older [id number] Vital Signs Date Vital Result Comment 02/26/2019 12:54pm Height 66 inches 5'6" Weight 161.00 lb Heart Rate 71 /min BP Systolic 99 mmHg BP Diastolic 55 mmHg O2 % BldC Oximetry 97 % BMI (Body Mass Index) 26.0 kg/m2 01/29/2019 1:56pm Height 66 inches 5'6" Weight 165.12 lb Heart Rate 65 /min BP Systolic 113 mmHg BP Diastolic 63 mmHg Body Temperature 98.0 F O2 % BldC Oximetry 97 % BMI (Body Mass Index) 26.6 kg/m2 Results Test Acquired Date Facility Test Result H/L Range Note CBC No Diff 02/26/2019 [facility] White Blood 15.1 10^3/uL High 3.5-10.[address] [place] [address] [phone] Red Blood Count 5.03 10^6/uL Normal 4.18-5.48 Hemoglobin 15.1 g/dL Normal 14.0-18.0 Hematocrit 45 % Normal 42-52 Mean Corpuscular Volume 89 fL Normal 80-94 Mean Corpuscular Hemoglobin 30 pg Normal 27-31 Mean Corpuscular HGB Conc 34 g/dL Normal 31-36 Red Cell Distribution Width 13 % Normal 10-15 Platelet Count 306 10^3/uL Normal 150-450 Mean Platelet Volume 7.4 fL Normal 7.4-10.4 Comp Metabolic 02/26/2019 [facility] Sodium 139 mmol/L Normal 135-[address] [place] [address] [phone] Potassium 4.2 mmol/L Normal 3.5-5.0 Chloride 101 [...] Egfr 103.8 >60 1 Laboratory test 02/26/2019 [facility] C Reactive 2.72 mg/L Normal <8.[address] [place] [address] [phone] Thiopurine Metabolites <pending> Laboratory test 10/18/2018 [facility] Surgical SEE RESULT 2 , [address] [place] [address] [phone] 1 Because ethnic data is not always [...] 5 Kidney failure <15 (or dialysis) 2 [id number] 3 SEE RESULT BELOW Name: LION MANLEY : [address]: Jayson Fermin MD Acct: [id number] Unit: [id number] AGE: 63 Location: [facility] Re10/18/18 SEX: M Status: DEP REF SPEC: [id number] TIFFANIE: 10/18/18- SUBM DR: Jayson Fermin MD REQ: [id number] RECD: 10/18/18 STATUS: PHILIP ACOSTA DR: Toro Roger III, MD _ ORDERED: LEVEL 4/7 COMMENTS: [id number] FINAL DIAGNOSIS 1. Colon, right, biopsies: -- [...] CONTINUED ON NEXT PAGE DEPARTMENT OF PATHOLOGY, [address] [place] [address] Cole Donnelly M.D. Director [facility] # [id number] RUN DATE: 10/19/18 [facility] LAB LIVE PAGE 2 Patient: LION MANLEY [id number] (Continued) CLINICAL HISTORY (Continued) CLINICAL HISTORY Ulcerative [...] CONTINUED ON NEXT PAGE DEPARTMENT OF PATHOLOGY, [address] [place] [address] Cole Donnelly M.D. Director [facility] # [id number] RUN DATE: 10/19/18 [facility] LAB LIVE PAGE 3 Patient: LION MANLEY [id number] (Continued) GROSS DESCRIPTION (Continued) consists of two translucent pierce-white irregular soft tissue fragments averaging 0.3 by up to 0.3 x 0.1 cm which are submitted entirely in one cassette. Signed by and Reported on: Cole Donnelly MD 02/27 1024 END OF REPORT DEPARTMENT OF PATHOLOGY, [address] [place] [address] Cole Donnelly M.D. Director [facility] # [id number] Procedures Date Code Description Status 10/18/2018 52774 Colonoscopy Flexible Remove Tumor/Polyp/Lesion Snare Completed Technique 10/18/2018 72185 Colonoscopy,W/Directed Submucosal Injections, Any Completed Substance 10/18/2018 52575020 Colonoscopy Completed 02/16/2017 93311312 Colonoscopy Completed 12/10/2015 24063008 Colonoscopy Completed 05/20/2014 74545773 Colonoscopy Completed 04/25/2013 02354790 Colonoscopy Completed 03/05/2008 63026429 Colonoscopy Completed Medical Devices Description No Information Available Encounters Type Date Location Provider Dx Diagnosis Office Visit 01/29/2019 [facility] Internal Harman Rubio NP Z01.818 Encounter for other 1:40p Medicine - Ccmob preprocedural examination H26.9 Unspecified cataract K50.90 Crohn's disease, unspecified, without complications Z23 Encounter for immunization Assessments Date Code Description Provider 02/26/2019 K51.90 Ulcerative colitis, unspecified, without Jayson Fermin MD complications 02/26/2019 Z79.899 Other long chain beamer (current) drug therapy Jayson Fermin MD 01/29/2019 [...] Jayson Fermin MD Plan of Treatment Future Appointment(s):03/29/2019 10:15 am - Jayson Fermin MD at [facility] Rkvlnqhjjmphyrwy24/16/2020 11:00 am - Jayson Fermin MD at [facility] Eimthrfetdmxtmwe85/18/2019 - Jayson Fermin MDK51.90 Ulcerative colitis, unspecified, without complicationsNew Labs:Thiopurine Methyltransferase, Ordered : 02/26/19Follow up:4 weeks;Z79.899 Other halfway (current) drug therapyNew Labs:Thiopurine Methyltransferase, Ordered: 02/26/19Follow up:4 weeks; Functional Status Description No Information Available Mental Status Description No Information Available Referrals Description No Information Available
[2019-04-23 10:58] VITALS: BP 108/61
--- NOTE | 2019-04-23 11:01 | UC ---
Throat Pain/Nasal Sylvain HPI - HPI Summary HPI Summary: 63 yo male presents with flu-like symptoms. He tells me that he is weaning off prednisone for colitis from his GI doctor. Last night he felt fatigued with body aches and sinus congestion. Took his temp and it was 100.3F. Took tylenol and felt better. This morning symptoms were still mildly present, but feels better overall. Denies cough, sore throat, SOB, chest pain, abdominal pain, n/v/ d/c, dysuria. - History of Current Complaint Chief Complaint: UCGeneralIllness Stated Complaint: FEVER SINUS ISSUE Time Seen by Provider: 04/23/19 11:01 Hx Obtained From: Patient Onset/Duration: Sudden Onset Severity: Mild Pain Intensity: 2 Pain Scale Used: 0-10 Numeric - Allergies/Home Medications Allergies/Adverse Reactions: Allergies Allergy/AdvReac Type Severity Reaction Status Date / Time meperidine [From Demerol] Allergy Vomiting Verified 04/23/19 10:59 SCOPALAMINE Allergy Unknown Hallucinati Uncoded 04/23/19 10:59 ons morphine and related Allergy Vomiting Uncoded 04/23/19 10:59 PMH/Surg Hx/FS Hx/Imm Hx - Additional Past Medical History Additional PMH: IBD - Surgical History Surgical History: Yes Surgery Procedure, Year, and Place: LENS IMPLANT IN EYE, TONSILECTOMY AGE 9 - Social History Lives: With Family Alcohol Use: Weekly Alcohol Amount: 4 per week Substance Use Type: None Smoking Status (MU): Never Smoked Tobacco Review of Systems All Other Systems Reviewed And Are Negative: No Constitutional: Positive: Fatigue, Other - Body aches Skin: Positive: Negative Eyes: Positive: Negative ENT: Positive: Sinus Congestion Respiratory: Positive: Negative Cardiovascular: Positive: Negative Gastrointestinal: Positive: Negative Neurological: Positive: Negative Psychological: Positive: Negative Physical Exam - Summary Physical Exam Summary: GENERAL: NAD. WDWN. No pain distress. SKIN: No rashes, sores, lesions, or open wounds. HEENT: Head: AT/NC Eyes: EOM intact. Conjunctiva clear without inflammation or discharge. Ears: Hearing grossly normal. TMs intact, no bulging, erythema, or edema. Nose: Nasal mucosa pink and moist. NTTP maxillary and frontal sinus. Throat: Posterior oropharynx without exudates, erythema, or tonsillar enlargement. Uvula midline. NECK: Supple. Nontender. No lymphadenopathy. CHEST: CTAB. No r/r/w. No accessory muscle use. Breathing comfortably and in no distress. CV: RRR. Pulses intact. Cap refill <2seconds NEURO: Alert. PSYCH: Age appropriate behavior. Triage Information Reviewed: Yes Vital Signs: Initial Vital Signs Temp 98.8 F 04/23/19 10:56 Pulse 81 04/23/19 10:56 Resp 18 04/23/19 10:56 BP 108/61 04/23/19 10:56 Pulse Ox 100 04/23/19 10:56 Laboratory Tests 04/23/19 11:15 Influenza A (Rapid) Negative Influenza B (Rapid) Negative Vital Signs Reviewed: Yes Throat Pain/Nasal Course/Dx - Course Course Of Treatment: POC flu negative. Suspect viral illness. - Differential Dx/Diagnosis Provider Diagnosis: Viral illness Discharge ED - Sign-Out/Discharge Documenting (check all that apply): Patient Departure All imaging exams completed and their final reports reviewed: No Studies - Discharge Plan Condition: Stable Disposition: HOME Patient Education Materials: Viral Syndrome (ED) Referrals: Toro Roger MD [Primary Care Provider] - Additional Instructions: Your symptoms are likely from a viral infection. Viral infections do not respond to antibiotics and are limited to the treatment of symptoms. Viral infections typically run their course in 7-10 days. Drink plenty of fluids, especially if you are running any fever. Use salt water gargles several times a day. Take over the counter acetaminophen (Tylenol) or ibuprofen (Advil, Motrin) according to directions as needed for pain or fever. You may also use Chloraseptic spray or Cepacol lonzenges according to directions which contain a numbing medication and can provide some temporary relief from a sore throat. Return here or follow up with your primary care provider in 7 days if symptoms persist. - Billing Disposition and Condition Condition: STABLE Disposition: Home
[2019-04-23 11:26] LABS: Influenza A Molecular NEGATIVE (Negative); Influenza B Molecular NEGATIVE (Negative)
== END 2019-04-23 11:36 | disposition home or self-care (01) ==
LOC: UCEAST 10:47
DX: B34.9 Viral infection, unspecified (principal); R53.83 Other fatigue; R52 Pain, unspecified; K63.9 Disease of intestine, unspecified; R09.81 Nasal congestion; Z88.5 Allergy status to narcotic agent; Z88.8 Allergy status to other drugs, medicaments and biological substances
CPT/HCPCS: 99211; G0463

== ENCOUNTER 2019-05-02 23:59 | Observation (INO) | payer MEDICARE ==
--- OUTSIDE RECORDS SUMMARY | 2019-05-03 00:17 | XMS REPORT | Continuity of Care Document ---
:1955 External Reference #:[id number] Author Name Alyce Pelayo NP (transmitted by agent of provider Madyson Clifton ) Address [address] [place] [address] Care Team Providers Name Role Phone Jayson Fermin MD - Gastroenterology Care Team Information Repatcher [phone] Toro Roger III, MD - Internal Care Team Information Repatcher Medicine Kobe Robertson MD - Otolaryngology Care Team Information Repatcher Problems Active Problems Provider Date Ulcerative colitis Jayson Fermin MD Onset: 04/08/1991 Note: some confusion initially of CD instead; ( indeterminant per [facility]) - UC per first wardrobe specialist in [place] - bloody diarrhea; February 2019 flare was first prednisone need in 5 yrs Hyperlipidemia Ernie Sierra M.D.,FACP Onset: 03/13/2007 Note: [...] Code Status Date Vaccine Reaction Lot # [id number] Given 01/29/2019 Influenza Virus Vaccine, No immediate reaction [id number] Quadrivalent ([id number]), Derived From Cell 98352 Given 06/21/2018 Tdap - [id number] Tetanus/Diptheria/Acellular Pertussis 85558 Given 04/27/2018 Influenza Virus Vaccine, [id number] Quadrivalent, Split, Preservative Free 70449 Given 02/06/2016 Influ Virus Vaccine, [id number] Quadrivalent, Split Virus, [place] [address] Given 11/18/2014 Pneumococcal Conjugate no reaction, no [id number] Vaccine 13 Valent For complaints Intramuscular Use 31836 Given 11/16/2013 Zoster (Zostavax) [id number] Given 04/24/2012 Fluvirin Im 3Yrs And Older [id number] Vital Signs Date Vital Result Comment 04/06/2019 [...] Date Facility Test Result H/L Range Note Rapid Influenza 04/23/2019 [facility] Influenza A NEGATIVE Negative A & B Molecular [address] [place] [address] [phone] Influenza B Molecular NEGATIVE Negative 1 CBC No Diff 02/26/2019 [facility] White Blood 15.1 10^3/uL High 3.5-10.[address] [place] [address] [phone] Red Blood Count 5.03 10^6/uL Normal 4.18-5.48 Hemoglobin 15.1 g/dL Normal 14.0-18.0 Hematocrit 45 % Normal 42-52 Mean Corpuscular Volume 89 fL Normal 80-94 Mean Corpuscular Hemoglobin 30 pg Normal 27-31 Mean Corpuscular HGB Conc 34 g/dL Normal 31-36 Red Cell Distribution Width 13 % Normal 10-15 Platelet Count 306 10^3/uL Normal 150-450 Mean Platelet Volume 7.4 fL Normal 7.4-10.4 Comp Metabolic 02/26/2019 [facility] Sodium 139 mmol/L Normal 135-145 Panel [address] [place] [address] [phone] Potassium 4.2 mmol/L Normal 3.5-5.0 Chloride 101 [...] Egfr Non- 85.8 >60 Egfr 103.8 >60 2 Laboratory test 02/26/2019 [facility] C Reactive 2.72 mg/L Normal <8.[address] [place] [address] [phone] Thiopurine Metabolites <pending> Thiopurine 02/26/2019 [facility] Interpretation See Comment 3 Methyltransferase [address] [place] [address] [phone] 6-Methylmercaptopurine 2.86 nmol/mL/h Abnormal 3.00-6.66 6Methylmercaptopurine Riboside 4.95 nmol/mL/h Abnormal 5.04-9.57 6-Methylthioguanine riboside 4.18 nmol/mL/h 2.70-5.84 Reviewed By See Comment 4 1 Cut Lace Machine Operator: [id number] 2 Because ethnic data is not always readily [...] 15-29 5 Kidney failure <15 (or dialysis) 3 *Heterozygote* In this whole blood sample, the [...] developed and its performance characteristics determined by [facility] in a manner consistent with CLIA requirements. This test has not been cleared or approved by the U.S. Food and Drug Administration. 4 RESULT: Malcolm Mckeon M.D. Test Performed by: [address] [address] [employer] Manufacturer: Denzel Krishna M.D. Ph.D.; CLIA# [id number] Procedures Date Code Description Status 10/18/2018 [id number] Colonoscopy Completed 02/16/2017 [id number] Colonoscopy Completed 12/10/2015 [id number] Colonoscopy Completed 05/20/2014 [id number] Colonoscopy Completed 04/25/2013 [id number] Colonoscopy Completed 03/05/2008 [id number] Colonoscopy Completed Medical Devices Description No Information Available Encounters Type Date Location Provider Dx Diagnosis Office Visit 04/06/2019 [facility] Gastroenterology Jayson Farley K51.90 Ulcerative colitis, 10:15a MD Zander unspecified, without complications Z79.899 Other exterminator helper (current) drug therapy Office 03/19/2019 [facility] Gastroenterology Jayson Farley K51.90 Ulcerative Visit 1:45p MD Zander colitis, unspecified, without complications Z79.899 Other exterminator helper (current) drug therapy Office 02/26/2019 [facility] Gastroenterology Jayson Farley K51.90 Ulcerative Visit 12:30p MD Zander colitis, unspecified, without complications Z79.899 Other usp (current) drug therapy Office Visit 01/29/2019 1:40p [facility] Internal Harman Rubio, Z01.818 Encounter for other Medicine - HVAC ENGINEER preprocedural Ccmob examination H26.9 Unspecified cataract K50.90 Crohn's disease, unspecified, without complications Z23 Encounter for immunization Assessments Date Code Description Provider 04/06/2019 K51.90 Ulcerative colitis, unspecified, without Jayson Fermin MD complications 04/06/2019 Z79.899 Other exterminator helper (current) drug therapy Jayson Fermin MD 03/19/2019 K51.90 Ulcerative colitis, unspecified, without Jayson Fermin MD complications 03/19/2019 Z79.899 Other exterminator helper (current) drug therapy Jayson Fermin MD 02/26/2019 K51.90 Ulcerative colitis, unspecified, without Jayson Fermin MD complications 02/26/2019 Z79.899 Other usp (current) drug therapy Jayson Fermin MD 01/29/2019 Z01.818 Encounter for other preprocedural examination Harman Rubio NP 01/29/2019 H26.9 Unspecified cataract Harman Rubio NP 01/29/2019 K50.90 Crohn's disease, unspecified, without Harman Rubio NP complications 01/29/2019 Z23 Encounter for immunization Harman Rubio NP Plan of Treatment Future Appointment(s):05/17/2019 10:15 am - Jayson Fermin MD at [facility] Gastroenterology Functional Status Description No Information Available Mental Status Description No Information Available Referrals Description No Information Available
[2019-05-03] MEDS ORDERED: Acetaminophen TAB* 325 MG PO ONE (00:56)
[2019-05-03] MEDS ORDERED: NS 0.9% 1000 ML** 1,000 ML IV ONE ×2 (00:56→02:16)
[2019-05-03] MEDS ORDERED: Benzonatate CAP* 100 MG PO ONE (00:57)
[2019-05-03] MEDS ORDERED: Al Hydrox/Mg Hydrox/Simet LIQ* 30 ML UDC PO ONE (01:03)
--- NOTE | 2019-05-03 01:03 | ED ---
Influenza-Like Illness - HPI Summary HPI Summary: Patient complains of fatigue, fever, productive cough, nasal discharge, facial pressure, SOB 2 weeks. Saw primary care on 04/28/19, prescribed prednisone and Augmentin. Patient took antibiotics for a couple days, but states no improvement. Patient called his PCP yesterday and was started on azithromycin. Patient states he feels like he is getting worse. Denies ear pain, neck stiffness, CP, SOB, N/3/D, abdominal pain, change in urine, change in BM. Medical history is colitis. - History of Current Complaint Chief Complaint: EDFever Time Seen by Provider: 05/03/19 00:46 Hx Obtained From: Patient Onset/Duration: Gradual Onset, Lasting Weeks Severity: Moderate Associated Signs & Symptoms: Fever, Cough, Nasal Congestion - Allergy/Home Medications Allergies/Adverse Reactions: Allergies Allergy/AdvReac Type Severity Reaction Status Date / Time meperidine [From Demerol] Allergy Vomiting Verified 05/03/19 00:12 SCOPALAMINE Allergy Unknown Hallucinati Uncoded 05/03/19 00:12 ons morphine and related Allergy Vomiting Uncoded 05/03/19 00:12 PMH/Surg Hx/FS Hx/Imm Hx Endocrine/Hematology History: Denies: Hx Diabetes Cardiovascular History: Denies: Hx Hypertension, Hx Pacemaker/ICD, Other Cardiovascular Problems/ Disorders Respiratory History: Denies: Other Respiratory Problems/Disorders GI History: Reports: Hx Crohn's Disease Denies: Other GI Disorders History: Denies: Hx Dialysis Musculoskeletal History: Reports: Hx Arthritis - knees Denies: Hx Rheumatoid Arthritis, Hx Osteoporosis, Other Musculoskeletal History Sensory History: Reports: Hx Cataracts - left eye, Hx Contacts or Glasses - contact right only Denies: Hx Hearing Aid Opthamlomology History: Reports: Hx Cataracts - left eye, Hx Contacts or Glasses - contact right only EENT History: Denies: Hx Deafness Neurological History: Denies: Hx Dementia, Other Neuro Impairments/Disorders Psychiatric History: Denies: Hx Panic Disorder - Surgical History Surgery Procedure, Year, and Place: LENS IMPLANT IN EYE, TONSILECTOMY AGE 9 Hx Anesthesia Reactions: Yes - nausea with opiods Infectious Disease History: No Infectious Disease History: Denies: Traveled Outside the [place] in Last 30 Days - Family History Known Family History: Positive: Non-Contributory - Social History Alcohol Use: Weekly Alcohol Amount: 4 per week Substance Use Type: Reports: None Smoking Status (MU): Never Smoked Tobacco Review of Systems Positive: Fever, Chills Eyes: Negative Positive: Nasal Discharge Cardiovascular: Negative Positive: Shortness Of Breath, Cough Gastrointestinal: Negative Genitourinary: Negative Musculoskeletal: Negative Skin: Negative Neurological: Negative Psychological: Normal All Other Systems Reviewed And Are Negative: Yes Physical Exam Triage Information Reviewed: Yes Vital Signs On Initial Exam: Initial Vitals Temp Pulse Resp BP Pulse Ox 102.9 F 117 20 114/74 95 05/03/19 00:05 05/03/19 00:05 05/03/19 00:05 05/03/19 00:05 05/03/19 00:05 Vital Signs Reviewed: Yes Appearance: Positive: Well-Appearing Skin: Positive: Warm Head/Face: Positive: Normal Head/Face Inspection Eyes: Positive: Normal ENT: Positive: Normal ENT inspection Neck: Positive: Supple Respiratory/Lung Sounds: Positive: Clear to Auscultation Cardiovascular: Positive: Tachycardia Abdomen Description: Positive: Nontender Musculoskeletal: Positive: Normal Neurological: Positive: Normal Psychiatric: Positive: Normal AVPU Assessment: Alert - Comstock Coma Scale Best Eye Response: 4 - Spontaneous Best Motor Response: 6 - Obeys Commands Best Verbal Response: 5 - Oriented Coma Scale Total: 15 Procedures - Sedation Patient Received Moderate/Deep Sedation with Procedure: No Diagnostics - Vital Signs Vital Signs Temp Pulse Resp BP Pulse Ox 05/03/19 00:05 102.9 F 117 20 114/74 95 - Laboratory Result Diagrams: 05/04/19 06:26 05/04/19 06:26 Lab Statement: Any lab studies that have been ordered have been reviewed, and results considered in the medical decision making process. Flu Symptom Course/Dx - Course Course Of Treatment: Patient complains of fatigue, fever, productive cough, nasal discharge, facial pressure, SOB 2 weeks. Saw primary care on 04/28/19, prescribed prednisone and Augmentin. Patient took antibiotics for a couple days , but states no improvement. Patient called his PCP yesterday and was started on azithromycin. Patient states he feels like he is getting worse. Denies ear pain, neck stiffness, CP, SOB, N/3/D, abdominal pain, change in urine, change in BM. Medical history is colitis. Took aspirin at 10 PM. Febrile at 102.9. Heart rate 117. Vital signs otherwise within normal limits. Labs unremarkable. - Diagnoses Provider Diagnoses: Bilateral pneumonia Discharge ED - Sign-Out/Discharge Documenting (check all that apply): Sign-Out Patient Signing out patient TO: Lokesh Doty - Discharge Plan Condition: Fair Disposition: HOME - Billing Disposition and Condition Condition: FAIR Disposition: Home
[2019-05-03 01:42] LABS: Hematocrit 38 % (42-52); Mean Corpuscular HGB Conc 35 g/dL (31-36); Mean Corpuscular Hemoglobin 30 pg (27-31); Mean Corpuscular Volume 88 fL (80-94); Mean Platelet Volume 6.7 fL (7.4-10.4); Platelet Count 341 10^3/uL (150-450); Red Cell Distribution Width 14 % (10-15); White Blood Count 10.1 10^3/uL (3.5-10.8)
[2019-05-03 01:54] LABS: Albumin 3.4 g/dL (3.2-5.2); Albumin/Globulin Ratio 1.3 (1-3); BUN/Creatinine Ratio 18.3 (8-20); C Reactive Protein 20.91 mg/L (<8.01); Calcium 8.5 mg/dL (8.6-10.3); EGFR African American 82.2 (>60); EGFR Non-African American 67.9 (>60); Globulin 2.7 g/dL (2-4); Potassium 3.7 mmol/L (3.5-5.0); Total Bilirubin 0.4 mg/dL (0.2-1.0); Total Protein 6.1 g/dL (6.4-8.9)
[2019-05-03] MEDS ORDERED: Ibuprofen TAB* 600 MG PO ONE (02:16)
[2019-05-03 02:24] LABS: ABS Basophils 0.1 10^3/ul (0-0.2); ABS Lymphocytes 0.9 10^3/ul (1.0-4.8); ABS Monocytes 0.4 10^3/ul (0-0.8); ABS Neutrophils 8.7 10^3/ul (1.5-7.7); Eosinophil % 0.3 %; Lymphocyte % 8.8 %
[2019-05-03] MEDS ORDERED: cefTRIAXone(*) 1 GM in NS 0.9% 50 ML* 50 ML IVPB ONE (02:56)
--- NOTE | 2019-05-03 02:56 | ED ---
Progress - Progress Note Progress Note: Pt is a signout from HANSA John, pending CXR and re-evaluation. - Results/Orders Results/Orders: CXR shows: Bilateral interstitial lung infiltrates w/ marked change from last week. Pending official radiology report. Course/Dx - Course Course Of Treatment: Pt is a signout from HANSA John, pending CXR and re- evaluation. CXR shows bilateral interstitial lung infiltrates w/ marked change from last week. The patient appears fairly ill, with some mild dyspnea at rest that worsens with any exertion. Pt is at high risk for clinical deterioration and should be hospitalized at this point. I spoke with Dr. Walker at 0300 about the pt's present condition, who will come to evaluate the pt for admission. Dx includes bilateral pneumonia. - Diagnoses Provider Diagnoses: Bilateral pneumonia Discharge ED - Sign-Out/Discharge Documenting (check all that apply): Patient Departure - Discharge Plan Condition: Stable Disposition: HOME - Billing Disposition and Condition Condition: STABLE Disposition: Home - Attestation Statements Document Initiated by Miguel Aibe: Yes Documenting Scribe: Nuria Costa Provider For Whom Renetta is Documenting (Include Credential): Lokesh Doty MD. Scribe Attestation: I, Nuria Costa, scribed for Lokesh Doty MD. on 05/03/19 at 1932. Scribe Documentation Reviewed: Yes Provider Attestation: The documentation as recorded by the scribe, Nuria Costa accurately reflects the service I personally performed and the decisions made by me, Lokesh Doty MD. Status of Scribe Document: Viewed
[2019-05-03] MEDS ORDERED: Ondansetron INJ* 2 MG/ML VIAL IV PRN (03:44)
[2019-05-03] MEDS ORDERED: Saline NASAL SPRAY 0.65%* BTL BOTH NARES PRN (03:57)
[2019-05-03] MEDS ORDERED: Vancomycin per Pharmacy* NOTE FOLLOW UP SCH (04:00)
[2019-05-03] MEDS ORDERED: Vancomycin(*) 1,250 MG IV x ONCE IVPB ONE ×2 (04:30)
[2019-05-03] MEDS: NS 0.9% 1000 ML** 1,000 ML IV SCH ×2 (04:57→23:05)
[2019-05-03] MEDS: Enoxaparin(*) 40 MG/0.4 ML SYR SUBCUT SCH (04:58)
[2019-05-03 05:14] LABS: Influenza A Molecular NEGATIVE (Negative); Influenza B Molecular NEGATIVE (Negative)
--- NOTE | 2019-05-03 07:21 | HP ---
ADMISSION HISTORY AND PHYSICAL: DATE OF ADMISSION: 05/03/19 PRIMARY CARE PHYSICIAN: Dr. Toro Roger. PROVIDER: Beatriz Duval NP ATTENDING PHYSICIAN: Dr. Avinash Walker.* (DICTATED BY BEATRIZ DUVAL NP) CHIEF COMPLAINT: Fever and chills. HISTORY OF PRESENT ILLNESS: This is a 63-year-old male with a past medical history significant for Crohn's, who arrived to the emergency room on 05/02/19 for fever, chills, and productive cough. Originally, he was seen by his PCP on 04/27/19, at which point a chest x-ray was done, he was diagnosed with pneumonia. He had been feeling for the 2 weeks prior to that short of breath, fatigued, off-and-on chills, productive cough, nasal discharge with facial pressure. At that point, he was started on prednisone and Augmentin, however, he did not notice any improvement and felt that his symptoms were worsening. He called his PCP on 05/01/19, who then started him on azithromycin. However, he still was not getting any better, so he came to the emergency room. Also of note, 6 weeks ago, he had a colitis flare-up, which he has not had in around 5 years. At that point, they started him on 60 mg of prednisone, which he has been tapering off since, is currently on a 10 mg dose, but feels this likely contributed to his pneumonia. In the emergency room, he received 2 L of normal saline and ceftriaxone and benzonatate, at which point the Hospitalists were asked to evaluate the patient for admission. PAST MEDICAL HISTORY: Crohn's, arthritis in the knees, and cataracts in his left eye. PAST SURGICAL HISTORY: Left eye lens implant, tonsillectomy. HOME MEDICATIONS: 1. Balsalazide disodium 2250 mg p.o. q.a.m. 2. Prednisone taper, currently on 10 mg p.o. q.a.m. 3. Benzonatate 200 mg p.o. t.i.d. ALLERGIES: MEPERIDINE, SCOPOLAMINE, MORPHINE. FAMILY HISTORY: Denies any significant family history, stating that they are relatively healthy. SOCIAL HISTORY: Denies any tobacco use. Drinks about 5 glasses of wine a week , 1 glass with dinner. Denies any recreational substance use. 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 He is and has 1 adopted son. REVIEW OF SYSTEMS: All pertinent positives were reviewed in the HPI. Pertinent negatives include no ear pains, neck stiffness, chest pain, nausea, vomiting, diarrhea, abdominal pain, or issues moving his bowel and bladder. However, he also did vomit once after dinner last night. PHYSICAL EXAMINATION GENERAL: This is a well-developed gentleman seen resting in the stretcher. He is flushed, glassy eyed, in no acute distress. VITAL SIGNS: 99.4 Fahrenheit, 85 pulse, 23 respirations, 92% oxygen on room air , 97/57 blood pressure. HEENT: Conjunctivae are pink and moist. PERRLA. EOMs intact. Oropharynx clear. Mucous membranes slightly dry. NECK: Supple. No cervical or supraclavicular lymphadenopathy noted. RESPIRATORY: Lung sounds clear throughout bilaterally on room air. No accessory muscle use noted. CARDIAC: S1 and S2 present. Heart rate regular. No murmurs, gallops, or rubs appreciated. ABDOMEN: Soft, nontender, and nondistended with positive bowel sounds x4. MUSCULOSKELETAL: No clubbing or cyanosis of the digits. Full range of motion. NEUROLOGIC: Sensation is intact to light touch. No focal deficits appreciated. PSYCH: He is alert and oriented x3. Thought content organized. SKIN: No rashes or open areas appreciated, is flushed in the face. PERTINENT LAB DATA: Hemoglobin 13.0, hematocrit 38. Glucose 110, lactic acid 1.5, calcium 8.5. C-reactive protein 10.92. B-natriuretic peptide 18. Total protein 6.1. DIAGNOSTIC STUDIES: Chest x-ray, still awaiting official radiologic read, however, noted patchy infiltrates to bilateral lungs. ASSESSMENT AND PLAN: My impression is that this is a 63-year-old male with a past medical history significant for Crohn's, who was being admitted on for bilateral pneumonia. 1. Pneumonia. The patient has already failed treatment with Augmentin and azithromycin. We will start the patient on ceftriaxone and vancomycin IV, hydrate with normal saline at 100 mL an hour, already received 2 L of normal saline in the ED. We will check CBC and BMP in a.m. Due to lack of coughing, I do not feel that the patient needs a flutter valve or Mucinex at this point. We will also check urine for Legionella and Strep pneumoniae. 2. Nasal congestion. The patient has been having upper respiratory symptoms for several weeks, no longer having any nasal discharge, though continues to feel ongoing pressure in the ethmoid and maxillary sinuses. Ordered fluticasone and saline nasal spray for symptom relief. 3. Crohn's. He is no longer having any abdominal pain or issues moving his bowels. Has no abdominal tenderness. We will continue the balsalazide. 4. DVT prophylaxis. Initiate Lovenox. 5. Code status is full code. 6. Condition is fair. 7. Disposition is admit OBV to [address] [place] [address]. TIME SPENT: Time spent on the patient was about 60 minutes with half of that spent [id number]. BEATRIZ DUVAL, ERIN [id number]/CPS #: [id number] YANI
[2019-05-03] MEDS ORDERED: Balsalazide (NF) 750 MG CAP PO SCH (09:00)
[2019-05-03] MEDS: Fluticasone NASAL SPRAY 50MCG* 16 gm SPRAY BTL BOTH NARES SCH (09:04)
[2019-05-03] MEDS ORDERED: Vancomycin(*) 750 MG in NS 0.9% 250 ML* 250 ML IVPB SCH (13:00)
[2019-05-03] MEDS: Acetaminophen TAB* 325 MG PO PRN ×2 (13:12→23:05)
--- NOTE | 2019-05-03 18:31 | PN ---
Subjective Date of Service: 05/03/19 Interval History: Mr Cordova was treated with Amoxicillin x6d for pna; azithromycin was add 05/01. Pt had fever, chills last night, but none today. He has a productive cough, which has decreased today. He reports that he feels better, but does have sinus congestion and occasional sinus pain/headache. No other complaints today. Objective Active Medications: Acetaminophen (Tylenol Tab*) 650 mg PO Q4H PRN PRN Reason: MILD PAIN or TEMP > 100.4 Last Admin: 05/03/19 13:12 Dose: 650 mg Balsalazide (Balsalazide (Nf)) 2,250 mg PO BID [facility] Doxycycline Hyclate (Vibramycin Cap(*)) 100 mg PO BID [facility] Enoxaparin Sodium (Lovenox(*)) 40 mg SUBCUT Q24H [facility] Last Admin: 05/03/19 04:58 Dose: 40 mg Fluticasone Propionate (Flonase Nasal [place] 50mcg*) 2 spray BOTH NARES DAILY [facility] Last Admin: 05/03/19 09:04 Dose: 2 spray Sodium Chloride (Ns 0.9% 1000 Ml) 1,000 mls @ 100 mls/hr IV PER RATE [facility] Last Admin: 05/03/19 04:57 Dose: 100 mls/hr Ceftriaxone Sodium 1 gm/ (Sodium Chloride) 50 mls @ 100 mls/hr IVPB Q24H [facility] Ondansetron HCl (Zofran Inj*) 4 mg IV Q4H PRN PRN Reason: NAUSEA/VOMITING Prednisone (Deltasone 10 Mg Tab) 10 mg PO DAILY [facility] Last Admin: 05/03/19 09:04 Dose: 10 mg Sodium Chloride (Sodium Chloride 0.65% Nasal [place]*) 2 spray BOTH NARES QID PRN PRN Reason: CONGESTION Vital Signs: Temp Pulse Resp BP Pulse Ox 98.0 F 71 21 99/52 96 05/03/19 15:00 05/03/19 15:00 05/03/19 15:00 05/03/19 15:00 05/03/19 15:00 Oxygen Devices in Use Now: None Appearance: Mr. Cordova is a middle-aged white male who is sitting up in bed. He is breathing comfortably on room air and appears to be in no acute distress. Eyes: No Scleral Icterus, PERRLA Ears/Nose/Mouth/Throat: NL Teeth, Lips, Gums, Clear Oropharnyx, Mucous Membranes Moist Neck: NL Appearance and Movements; NL JVP, Trachea Midline Respiratory: Symmetrical Chest Expansion and Respiratory Effort, - - LLL fine rales Cardiovascular: NL Sounds; No Murmurs; No JVD, RRR, No Edema Abdominal: NL Sounds; No Tenderness; No Distention, No Hepatosplenomegaly Extremities: No Edema, No Clubbing, Cyanosis Neurological: Alert and Oriented x 3 Result Diagrams: 05/03/19 01:31 05/03/19 01:31 Microbiology and Other Data: Microbiology 05/03/19 05:05 Legionella Urinary Antigen - Final Urine Negative Legionella Antigen Streptococcus pneumoniae Ag Screen - Final Negative S. pneumo Antigen Assess/Plan/Problems-Billing Assessment: 63yom PMHx Crohn's presents with cough, fever; recently dx with pna and treated with 6d amoxicillin, 3d azithromycin. - Patient Problems (1) Pneumonia Comment: -dx outpatient pna; on amox since 04/27, azithro since 05/01 -presents with continued cough, fever; also associated sinus bhatia, drainage -DDx include pna, atypical pna, viral infection, bacterial sinusitis -continue ceftriaxone -add doxy for atypical coverage -BC pending -urine Ag negative for Legionella, S. pneumo -sputum culture ordered (2) Crohn's disease Comment: -continue reggie balsalazide (3) DVT prophylaxis Comment: -enoxaparin (4) Full code status Status and Disposition: Observation. Discharge when stable.
[2019-05-03 19:43] LABS: ABS Basophils 0.1 10^3/ul (0-0.2); ABS Lymphocytes 1.2 10^3/ul (1.0-4.8); ABS Monocytes 0.4 10^3/ul (0-0.8); ABS Neutrophils 6.6 10^3/ul (1.5-7.7); Eosinophil % 0.4 %; Hematocrit 35 % (42-52); Lymphocyte % 14.2 %; Mean Corpuscular HGB Conc 35 g/dL (31-36); Mean Corpuscular Hemoglobin 31 pg (27-31); Mean Corpuscular Volume 88 fL (80-94); Mean Platelet Volume 6.7 fL (7.4-10.4); Nucleated Red Blood Cells % 0.1; Platelet Count 322 10^3/uL (150-450); Red Blood Count 3.94 10^6 /uL (4.18-5.48); Red Cell Distribution Width 14 % (10-15); White Blood Count 8.3 10^3/uL (3.5-10.8)
[2019-05-03 20:00] LABS: BUN/Creatinine Ratio 19.2 (8-20); Calcium 8.5 mg/dL (8.6-10.3); EGFR African American 86.7 (>60); EGFR Non-African American 71.7 (>60); Potassium 4.6 mmol/L (3.5-5.0)
[2019-05-03] MEDS: PTO:Balsalazide (NF) 750 MG CAP PO SCH (21:15)
[2019-05-03] MEDS: DOXYcycline CAP(*) 100 MG PO SCH (21:17)
[2019-05-03] MEDS ORDERED: Calcium Carbonate CHEW TAB* 500 MG (TUMS) PO PRN (23:27)
[2019-05-04] MEDS ORDERED: cefTRIAXone(*) 1 GM in NS 0.9% 50 ML* 50 ML IVPB SCH ×2 (03:00→04:00)
[2019-05-04] MEDS: Acetaminophen TAB* 325 MG PO PRN ×2 (04:03→08:31)
[2019-05-04] MEDS: Enoxaparin(*) 40 MG/0.4 ML SYR SUBCUT SCH (04:06)
[2019-05-04 06:43] LABS: ABS Basophils 0.1 10^3/ul (0-0.2); ABS Eosinophils 0.1 10^3/ul (0-0.6); ABS Lymphocytes 1.4 10^3/ul (1.0-4.8); ABS Monocytes 0.4 10^3/ul (0-0.8); ABS Neutrophils 6.6 10^3/ul (1.5-7.7); Eosinophil % 0.6 %; Hematocrit 37 % (42-52); Hemoglobin 12.4 g/dL (14.0-18.0); Lymphocyte % 16.7 %; Mean Corpuscular HGB Conc 34 g/dL (31-36); Mean Corpuscular Hemoglobin 30 pg (27-31); Mean Corpuscular Volume 88 fL (80-94); Mean Platelet Volume 6.5 fL (7.4-10.4); Nucleated Red Blood Cells % 0.1; Platelet Count 318 10^3/uL (150-450); Red Blood Count 4.15 10^6 /uL (4.18-5.48); Red Cell Distribution Width 14 % (10-15); White Blood Count 8.6 10^3/uL (3.5-10.8)
[2019-05-04 07:15] LABS: BUN/Creatinine Ratio 13.3 (8-20); Calcium 8.5 mg/dL (8.6-10.3); EGFR African American 92.9 (>60); EGFR Non-African American 76.8 (>60); Potassium 3.7 mmol/L (3.5-5.0)
[2019-05-04] MEDS: DOXYcycline CAP(*) 100 MG PO SCH (08:30)
[2019-05-04] MEDS: Fluticasone NASAL SPRAY 50MCG* 16 gm SPRAY BTL BOTH NARES SCH (08:30)
[2019-05-04] MEDS: PTO:Balsalazide (NF) 750 MG CAP PO SCH (08:32)
[2019-05-04] MEDS ORDERED: Vancomycin Trough Check NOTE FOLLOW UP ONE (12:30)
[2019-05-04 12:50] VITALS: BP 116/63
--- NOTE | 2019-05-04 12:54 | DS ---
CC: Dr. Toro Roger * DISCHARGE SUMMARY: DATE OF ADMISSION: 05/03/19 DATE OF DISCHARGE: 05/04/19 PRIMARY CARE PROVIDER: Dr. Toro Roger. ATTENDING PHYSICIAN: Dr. Elvie Boogie * (dictated by HANSA Albrecht). DISCHARGE DIAGNOSES: 1. Pneumonia, likely atypical community-acquired pneumonia. 2. Acute sinusitis. SECONDARY DIAGNOSES: 1. Crohn disease. 2. Osteoarthritis, bilateral knees. 3. Left eye cataracts. STUDIES WHILE IN THE HOSPITAL: Chest x-ray, impression: Bilateral infiltrates with interval progression. DISCHARGE MEDICATIONS: Home medications: 1. Balsalazide disodium 2250 mg p.o. b.i.d. New home medications: 1. Amoxicillin/clavulanate 875 mg p.o. b.i.d. x7 days. 2. Doxycycline 100 mg p.o. b.i.d. x6 days. 3. Benzonatate 200 mg p.o. t.i.d. p.r.n. 4. Fluticasone nasal spray 2 sprays to both nares daily p.r.n. 5. Saline nasal sprays 2 sprays to both nares 4 times a day p.r.n. HISTORY OF PRESENT ILLNESS/HOSPITAL COURSE: Mr. Cordova is a 63-year-old male with a past medical history of Crohn disease who presented to the ER on with complaints of fever, chills, and productive cough. For full and complete details, please see the history and physical dictated by Beatriz Kirkland NP, but in short, the patient was diagnosed with pneumonia on 04/27/19 and was started on amoxicillin, which he took for 3 days. Due to lack of improvement, he saw his primary care provider again and was started on azithromycin with discontinuation of amoxicillin. After 2 days on azithromycin, the patient reported continued fever and chills with improved cough and presented to the ER. He was admitted and started on ceftriaxone and vancomycin. Vancomycin was discontinued and the patient was subsequently placed on ceftriaxone and azithromycin. Chest x-ray showed bilateral infiltrates; therefore, he was treated with pneumonia. Suspicion is that this is atypical pneumonia; therefore , doxycycline was added on. The patient was continued on ceftriaxone throughout his stay. At discharge, the patient was transitioned to oral Augmentin for coverage of possible acute sinusitis. The patient reports greater than 7 days of sinus congestion, sinus headache, and pressure behind the eyes as well as runny nose with discolored discharge and some blood. Again , the patient was on ceftriaxone throughout his stay and will be discharged on Augmentin. At the time of discharge, the patient reports sinus headache and pressure behind both eyes which has decreased some. He denies cough, fevers, or sweats, but does complain of chills on occasion. He notes that he has had no recent travel, last flight was in July to [place]. He does complain of mild shortness of breath which is worse with activity. He denies lower extremity edema. He has had no leukocytosis throughout his stay. Influenza testing was negative. He has been afebrile since admission where he presented with a temperature of 102.9. Mr. Cordova is stable for discharge to home. PHYSICAL EXAMINATION: Vital Signs: Temperature 98.0 oral, heart rate 69, respiratory rate 23, oxygen saturation 95% on room air, blood pressure 120/97. General: Mr. Cordova is a well-developed, well-nourished, slightly overweight, middle- aged white male, who is sitting up in bed. He is breathing comfortably on room air and appears to be in no acute distress. He is pleasant and cooperative. HEENT: PERRL. EOMI. Sclerae are nonicteric without injection. Hearing is grossly intact. Oral mucous membranes are moist. There are no lesions. The pharynx is clear. The tongue is at midline. Palate elevates symmetrically. Cardiovascular: Regular rate and rhythm with S1, S2 present. There are no murmurs, rubs, clicks, or gallops. There is no JVD or peripheral edema. Pulmonary: Symmetrical chest expansion without use of accessory muscles. There are left lower lobe expiratory coarse rales, otherwise lungs clear without wheeze or rhonchi. Abdomen: Bowel sounds in all quadrants. Soft , nontender to palpation. Musculoskeletal: Full range of motion without pain or deformities. 5/5 strength throughout. Neuro: The patient is awake. He is alert and oriented x3 with cranial nerves II through XII grossly intact. He is able to move all of his extremities with the motor strength 5/5 bilaterally in upper and lower extremities. DISCHARGE PLAN: Mr. Cordova will be discharged to home. CONDITION: Fair, stable. DIET: Heart healthy. ACTIVITY: As tolerated. MEDICATIONS: 1. Augmentin b.i.d. x7 days. 2. Doxycycline b.i.d. x6 days. 3. Continue Flonase, saline nasal spray p.r.n. congestion. 4. Tylenol and/or ibuprofen for fever and pain, recommend limiting use of ibuprofen. EDUCATION: 1. Follow up with primary care provider in 4 to 7 days. 2. Return to the ER or nearest hospital if you experience any worsening symptoms, chest pain or discomfort, shortness of breath, high fevers, chills, night sweats, dizziness, lightheadedness, loss of consciousness, or any other worrisome signs or symptoms. This is a summarized report of a complex medical history and hospital stay. For further details, please see the entire medical record. TIME SPENT: Approximately 35 minutes was spent on this discharge, greater than half that time was spent [id number] with the patient discussing discharge plans and instructions. HANSA DIETRICH [id number]/CPS #: [id number] MTDD
== END 2019-05-04 14:55 | disposition home or self-care (01) ==
LOC: ED 23:59 → MED 05-03 03:59
PROVIDERS: ADMIT Internal Medicine; ATTEND Internal Medicine
DX: J18.9 Pneumonia, unspecified organism (principal); J01.90 Acute sinusitis, unspecified; K50.90 Crohn's disease, unspecified, without complications; M17.0 Bilateral primary osteoarthritis of knee; H26.9 Unspecified cataract; Z79.899 Other long term (current) drug therapy; R06.02 Shortness of breath
CPT/HCPCS: 36415; 71046; 80048; 80053; 83605; 83880; 85025; 86140; 87040; 87899; 96361; 96365; 96366; 96367; 96372; 99284; A9270-GY; G0378; J0696; J1650; J3370; J7512